=== PATIENT | female | born 1970 | race African-American/Black ===

== ENCOUNTER 2016-12-08 09:40 | Emergency (ER) | payer BC | END 2016-12-08 11:32 | disposition home or self-care (01) | LOC: CED 09:40 | DX: G43.909 Migraine, unspecified, not intractable, without status migrainosus (principal); F17.210 Nicotine dependence, cigarettes, uncomplicated | CPT/HCPCS: 96361; 96374; 96375; 99284; J1200; J1885; J2765 ==